=== PATIENT | female | born 1985 | race Hispanic/Latino ===

== ENCOUNTER 2016-10-30 15:59 | Emergency (ER) | payer MEDICAID ==
--- NOTE | 2016-10-30 17:51 | Emergency Department Report ---
Chief Complaint: Abdominal Pain Stated Complaint: LFT ABD PAIN Time Seen by Provider: 10/30/16 17:50 - HPI History of Present Illness: Patient here complaining the left lower abdominal pain 2 days. Patient says she's had a history of ovarian cyst and also had essure control place. She says she has a constant dull pain and then she has stabbing pain also. She denies any urinary burning frequency or urgency. She reports nausea without any vomiting. Patient says she took Aleve without any relief. She denies any fever or chills. Pain is 8 out of 10. - ROS Review of Systems: All systems are negative unless stated in HPI above. - Exam Vital Signs: Vital Signs 10/30/16 16:49 Temperature 98.2 F Pulse Rate 79 Respiratory 20 Rate Blood Pressure 135/88 O2 Sat by Pulse 99 Oximetry Physical Exam: General: This is a 31-year-old female well-nourished well-developed in no acute distress. CV: S1, S2. Regular rate and rhythm. Abdomen: Tender to palpate to left lower quadrant with positive guarding. Normal bowel sounds. MSE screening note: Focused history and physical exam performed. Due to findings the following was ordered:see mdm ED Medical Decision Making - Medical Decision Making Medical decision making: Patient seen by provider in triage area. Appropriate protocol activated and patient to main ED to be seen by physician. ED Disposition for MSE Condition: Stable Instructions: Abdominal Pain (ED)
[2016-10-30 18:03] LABS: Bilirubin,Urine NEG (Negative); Blood,Urine SM (Negative); Ketones,Urine NEG (Negative); Leukocyte Esterase,Urine TR (Negative); Mucus,Urine FEW /HPF; Nitrite,Urine NEG (Negative); Protein,Urine <15 mg/dL mg/dL (Negative); Urobilinogen,Urine < 2.0 mg/dL (<2.0)
[2016-10-30 18:19] LABS: Basophils % (Auto) 0.8 % (0.0-1.8); Hematocrit 43.6 % (30.3-42.9); Hemoglobin 14.4 gm/dl (10.1-14.3); Mean Corpuscular HGB Conc 33 % (30-34); Mean Corpuscular Hemoglobin 28 pg (28-32); Mean Corpuscular Volume 86 fl (79-97); Platelet Count 284 K/mm3 (140-440); Red Blood Count 5.06 M/mm3 (3.65-5.03); Red Cell Distribution Width 13.4 % (13.2-15.2); White Blood Count 8.3 K/mm3 (4.5-11.0)
[2016-10-30 18:50] LABS: Alanine Aminotransferase 22 units/L (7-56); Albumin 4.2 g/dL (3.9-5); Albumin/Globulin Ratio 1.2 %; Alkaline Phosphatase 69 units/L (35-129); Anion Gap 19 mmol/L; BUN/Creatinine Ratio 14.28; Bilirubin,Total 0.3 mg/dL (0.1-1.2); Blood Urea Nitrogen 10 mg/dL (7-17); Calcium 8.9 mg/dL (8.4-10.2); Carbon Dioxide 25 mmol/L (22-30); Chloride 101.2 mmol/L (98-107); Glucose 91 mg/dL (65-100); Lipase 33 units/L (13-60); Potassium 3.9 mmol/L (3.6-5.0); Sodium 141 mmol/L (137-145); Total Protein 7.6 g/dL (6.3-8.2)
[2016-10-31] MEDS ORDERED: DILAUDID IV ONE ×4 (00:42→06:29)
[2016-10-31] MEDS ORDERED: ZOFRAN IV ONE (00:42)
[2016-10-31] MEDS ORDERED: TORADOL IV ONE (00:42)
--- NOTE | 2016-10-31 01:37 | Emergency Department Report ---
ED Abdominal Pain HPI - General Chief Complaint: Abdominal Pain Stated Complaint: LFT ABD PAIN Time Seen by Provider: 10/30/16 17:50 Source: patient Mode of arrival: Ambulatory Limitations: No Limitations - History of Present Illness Initial Comments: 31-year-old female withPast medical history presents to the hospital complaining of low quadrant pain 2 days. Pain is a constant aching with intermittent stabbing sensation. Rated 8/10 intensity. Worse with palpation. No alleviating factors. Positive nausea and secondary to pain without vomiting , fever, dysuria, hematuria, discharge, or vaginal bleeding. Similar pain with a ovarian cyst in the past. Severity scale (0 -10): 9 - Related Data Previous Rx's Medication Instructions Recorded Last Taken Type HYDROcodone/APAP 7.5-325 [[place] 1 each PO Q8HR PRN #20 tablet 10/31/16 Unknown Rx 7.5/325] Ibuprofen [Motrin] 800 mg PO Q8HR PRN #30 tablet 10/31/16 Unknown Rx Promethazine [Phenergan TAB] 25 mg PO Q6HR PRN #20 tab 10/31/16 Unknown Rx Allergies Allergy/AdvReac Type Severity Reaction Status Date / Time aspirin Allergy Unknown Verified 10/31/16 00:12 Sulfa (Sulfonamide Allergy Unknown Verified 10/31/16 00:12 Antibiotics) ED Review of Systems ROS: Stated complaint: LFT ABD PAIN Other details as noted in HPI Comment: All other systems reviewed and negative Other: Constitutional: No fevers chills Eyes: No eye pain visual changes ENT: No ear pain or throat pain Neck: Denies pain Respiratory: Denies cough wheezing shortness of breath Cardiovascular: Denies chest pain, palpitations, syncope GI: As per HPI : Denies dysuria, urinary frequency, or urgency Musculoskeletal: Denies back pain, joint swelling Skin: Denies rash, lesions, erythema Neurologic: Denies headache, numbness, weakness Psychiatric: Denies suicidal ideation, hallucinations Hematological/lymphatic: Denies easy bruising, lymphadenopathy ED Past Medical Hx - Past Medical History Previous Medical History?: Yes Additional medical history: cyst on ovaries - Surgical History Past Surgical History?: No - Social History Smoking Status: Never Smoker Substance Use Type: None - Medications Home Medications: Home Medications Medication Instructions Recorded Confirmed Last Taken Type HYDROcodone/APAP 7.5-325 [[place] 1 each PO Q8HR PRN #20 tablet 10/31/16 Unknown Rx 7.5/325] Ibuprofen [Motrin] 800 mg PO Q8HR PRN #30 tablet 10/31/16 Unknown Rx Promethazine [Phenergan TAB] 25 mg PO Q6HR PRN #20 tab 10/31/16 Unknown Rx ED Physical Exam - General Limitations: No Limitations - Other Other exam information: General: No limitations, patient is alert in no acute distress Head exam: Atraumatic, normocephalic Eyes exam: Normal appearance, pupils equal reactive to light, extraocular movements intact ENT: Moist mucous membrane, normal oropharynx Neck exam: Normal inspection, full range of motion, no meningismus nontender Respiratory exam: Clear to auscultation bilateral, no wheezes, rales, crackles Cardiovascular: Normal rate and rhythm, normal heart sounds Abdomen: Soft, nondistended, lower quadrant tenderness, with normal bowel sounds , no rebound, or guarding : Extremity: Full range of motion normal inspection no deformity Back: Normal Inspection, full range of motion, no tenderness Neurologic: Alert, oriented x3, cranial nerves intact, no motor or sensory deficit Psychiatric: normal affect, normal mood Skin: Warm, dry, intact ED Course Vital Signs 10/30/16 10/30/16 10/31/16 16:49 22:55 00:10 Temperature 98.2 F 98.2 F 98.4 F Pulse Rate 79 69 70 Respiratory 20 18 18 Rate Blood Pressure 135/88 138/92 Blood Pressure 132/77 [Right] O2 Sat by Pulse 99 100 99 Oximetry 10/31/16 10/31/16 10/31/16 00:30 01:20 01:50 Temperature Pulse Rate Respiratory 20 20 20 Rate Blood Pressure Blood Pressure [Right] O2 Sat by Pulse 99 Oximetry 10/31/16 10/31/16 02:37 02:38 Temperature Pulse Rate Respiratory 20 20 Rate Blood Pressure Blood Pressure [Right] O2 Sat by Pulse Oximetry - Reevaluation(s) Reevaluation #1: 10/31/16 04:14 Patient treated with Dilaudid and Toradol for pain ED Medical Decision Making - Lab Data Result diagrams: 10/30/16 18:00 10/30/16 18:00 Lab Results 10/30/16 10/30/16 10/30/16 Range/Units 17:40 18:00 18:00 WBC 8.3 (4.5-11.0) K/mm3 RBC 5.06 H (3.65-5.03) M/mm3 Hgb 14.4 H (10.1-14.3) gm/dl Hct 43.6 H (30.3-42.9) % MCV 86 (79-97) fl MCH 28 (28-32) pg MCHC 33 (30-34) % RDW 13.4 (13.2-15.2) % Plt Count 284 (140-440) K/mm3 Lymph % (Auto) 34.4 (13.4-35.0) % [place] % (Auto) 8.1 H (0.0-7.3) % Eos % (Auto) 1.0 (0.0-4.3) % Baso % (Auto) 0.8 (0.0-1.8) % Lymph # 2.8 (1.2-5.4) K/mm3 [place] # 0.7 (0.0-0.8) K/mm3 Eos # 0.1 (0.0-0.4) K/mm3 Baso # 0.1 (0.0-0.1) K/mm3 Seg Neutrophils % 55.7 (40.0-70.0) % Seg Neutrophils # 4.6 (1.8-7.7) K/mm3 Sodium 141 (137-145) mmol/L Potassium 3.9 (3.6-5.0) mmol/L Chloride 101.2 (98-107) mmol/L Carbon Dioxide 25 (22-30) mmol/L Anion Gap 19 mmol/L BUN 10 (7-17) mg/dL Creatinine 0.7 (0.7-1.2) mg/dL Estimated GFR > 60 ml/min BUN/Creatinine Ratio 14.28 % Glucose 91 (65-100) mg/dL Calcium 8.9 (8.4-10.2) mg/dL Total Bilirubin 0.3 (0.1-1.2) mg/dL AST 18 (5-40) units/L ALT 22 (7-56) units/L Alkaline Phosphatase 69 (35-129) units/L Total Protein 7.6 (6.3-8.2) g/dL Albumin 4.2 (3.9-5) g/dL Albumin/Globulin Ratio 1.2 % Amylase (27-131) units/L Lipase 33 (13-60) units/L HCG, Qual (Negative) Urine Color Yellow (Yellow) Urine Turbidity Clear (Clear) Urine pH 5.0 (5.0-7.0) Ur Specific [place] 1.024 (1.003-1.030) Urine Protein <15 mg/dl (Negative) mg/dL Urine Glucose (UA) Neg (Negative) mg/dL Urine Ketones Neg (Negative) mg/dL Urine Blood Sm (Negative) Urine Nitrite Neg (Negative) Urine Bilirubin Neg (Negative) Urine Urobilinogen < 2.0 (<2.0) mg/dL Ur Leukocyte Esterase Tr (Negative) Urine WBC (Auto) 3.0 (0.0-6.0) /HPF Urine RBC (Auto) 3.0 (0.0-6.0) /HPF U Epithel Cells (Auto) 7.0 (0-13.0) /HPF Urine Mucus Few /HPF 10/30/16 10/30/16 Range/Units 18:00 18:00 WBC (4.5-11.0) K/mm3 RBC (3.65-5.03) M/mm3 Hgb (10.1-14.3) gm/dl Hct (30.3-42.9) % MCV (79-97) fl MCH (28-32) pg MCHC (30-34) % RDW (13.2-15.2) % Plt Count (140-440) K/mm3 Lymph % (Auto) (13.4-35.0) % [place] % (Auto) (0.0-7.3) % Eos % (Auto) (0.0-4.3) % Baso % (Auto) (0.0-1.8) % Lymph # (1.2-5.4) K/mm3 [place] # (0.0-0.8) K/mm3 Eos # (0.0-0.4) K/mm3 Baso # (0.0-0.1) K/mm3 Seg Neutrophils % (40.0-70.0) % Seg Neutrophils # (1.8-7.7) K/mm3 Sodium (137-145) mmol/L Potassium (3.6-5.0) mmol/L Chloride (98-107) mmol/L Carbon Dioxide (22-30) mmol/L Anion Gap mmol/L BUN (7-17) mg/dL Creatinine (0.7-1.2) mg/dL Estimated GFR ml/min BUN/Creatinine Ratio % Glucose (65-100) mg/dL Calcium (8.4-10.2) mg/dL Total Bilirubin (0.1-1.2) mg/dL AST (5-40) units/L ALT (7-56) units/L Alkaline Phosphatase (35-129) units/L Total Protein (6.3-8.2) g/dL Albumin (3.9-5) g/dL Albumin/Globulin Ratio % Amylase 16 L (27-131) units/L Lipase (13-60) units/L HCG, Qual Negative (Negative) Urine Color (Yellow) Urine Turbidity (Clear) Urine pH (5.0-7.0) Ur Specific [place] (1.003-1.030) Urine Protein (Negative) mg/dL Urine Glucose (UA) (Negative) mg/dL Urine Ketones (Negative) mg/dL Urine Blood (Negative) Urine Nitrite (Negative) Urine Bilirubin (Negative) Urine Urobilinogen (<2.0) mg/dL Ur Leukocyte Esterase (Negative) Urine WBC (Auto) (0.0-6.0) /HPF Urine RBC (Auto) (0.0-6.0) /HPF U Epithel Cells (Auto) (0-13.0) /HPF Urine Mucus /HPF wet prep neg - Radiology Data Radiology results: report reviewed Transvaginal/pelvic ultrasound: Uterine fibroid. Normal-appearing Left and right ovary. CT abdomen and pelvis without contrast: Essure fallopian tube implant noted in the right. Left implant not seen. Tiny metallic density adjacent to left ovary may be a surgical clip. Grossly normal ovaries. 2 mm Left lower lobe lung nodule needs follow-up. - Medical Decision Making No acute surgical or infectious cause of pain identified. Follow-up will be encouraged including for incidental findings. Patient provided a copy of imaging results and medication for pain - Differential Diagnosis vaginitis, cervicitis, ovarian cyst, UTI, renal colic, diverticulitis Critical Care Time: No Critical care attestation.: If time is entered above; I have spent that time in minutes in the direct care of this critically ill patient, excluding procedure time. ED Disposition Clinical Impression: LLQ abdominal pain, Lung nodule < 6cm on CT Uterine fibroid Qualifiers: Uterine leiomyoma location: unspecified location Qualified Code(s): D25.9 - Leiomyoma of uterus, unspecified Disposition: DISCHARGED TO HOME OR SELFCARE Is pt being admited?: No Does the pt Need Aspirin: No Condition: Stable Instructions: Abdominal Pain (ED), Uterine Fibroids (ED) Additional Instructions: Take the medication as needed for pain. The Essure implant was not visualized in the left fallopian tube like it was on the right on the CAT scan. Follow-up with [facility] for further evaluation of this as well as a uterine fibroid. Incidental finding of a 2 mm left lower lobe lung nodule. This requires outpatient follow-up and reevaluation to monitor this nodule. Take the copy of your CAT scan and ultrasound provided to your physicians for follow-up. 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 [Provider Group] - 3-5 Days CHERYL RATLIFF MD [Staff Physician] - 3-5 Days Time of Disposition: 04:10
--- NOTE | 2016-10-31 02:13 | Ultrasound Report ---
FINAL REPORT EXAM: US PELVIS DUPLEX DOPPLER COMP HISTORY: llq pain hx of ovarian cyst TECHNIQUE: Real time transabdominal and transvaginal pelvic ultrasound. Initially, transabdominal scanning was performed. Subsequently, transvaginal scanning was performed to better evaluate the uterus and ovaries. Color Doppler and spectral waveform analysis. PRIORS: None FINDINGS: Uterus measures 8.2 x 5.5 x 5.9 cm. 2 cm fundal fibroid on the right. Endometrium is 7.7 mm. Right ovary measures 2.7 x 1.7 x 1.7 cm. Left ovary measures 3.0 x 2.6 x 2.0 cm. Normal color Doppler and spectral waveforms on the left. On the right, adequate color Doppler and spectral waveforms cannot be obtained. This is likely technical given otherwise normal-appearing right ovary. No adnexal mass or free fluid. IMPRESSION: 1. Uterine fibroid. Adequate color Doppler and spectral waveforms on the right ovary cannot be obtained, which is likely technical given otherwise normal-appearing right ovary.
--- NOTE | 2016-10-31 03:58 | Cat Scan Report ---
FINAL REPORT EXAM: CT ABDOMEN PELVIS WO CON HISTORY: llq pain TECHNIQUE: CT abdomen and pelvis without contrast. Multiplanar reformations. PRIORS: None FINDINGS: Solid organ evaluation limited from lack of IV contrast. 2 mm nodule left lower lobe. No free air. Liver shows no significant abnormality. Normal biliary tree. Spleen shows no significant abnormality. Adrenal glands show no significant abnormality. Kidneys show no significant abnormality. Pancreas shows no significant abnormality. Abdominal aorta is non-aneurysmal. Normal-appearing appendix. No right lower quadrant inflammatory changes. No bowel obstruction identified. Essure fallopian tube implants noted on the right. Left sided implant not seen. There is a tiny metallic density adjacent to the left ovary may be a surgical clip. Grossly normal ovaries. No ureteral calculus seen on either side. Small fat-containing umbilical hernia. IMPRESSION: 1. Fallopian tube implant on the right. Left-sided fallopian tube implant is not visualized. 2. No acute inflammatory process. 3. Left lower lobe lung nodule. Followup for lung nodules of this size is as follows, in general: If this patient is low risk (no significant smoking history, no history of malignancy, and normal immune system), nodules less than 4 mm in size need no followup. If the patient is high risk (history of smoking or other known risk factors), followup in 12 months recommended with chest [address] If there is no change at that time, no additional followup is necessary.
[2016-10-31] MEDS ORDERED: DILAUDID ONE (04:55)
[2016-10-31 06:26] VITALS: BP 128/70
== END 2016-10-31 06:00 | disposition home or self-care (01) ==
LOC: ED 15:59
DX: R10.32 Left lower quadrant pain (principal); D25.9 Leiomyoma of uterus, unspecified; R91.1 Solitary pulmonary nodule; Z88.8 Allergy status to other drugs, medicaments and biological substances
CPT/HCPCS: 36415; 74176; 76830; 80053; 81001; 82150; 83690; 84703; 85025; 87210; 87591; 93975; 96374; 96375; 99284; J1170; J1885; J2405

== ENCOUNTER 2018-07-07 22:09 | Emergency (ER) | payer SELFPAY ==
[2018-07-07 23:18] VITALS: BP 127/71
--- NOTE | 2018-07-07 23:47 | XRay Report ---
FINAL REPORT EXAM: XR FOOT 3+V LT TECHNIQUE: Three views of the left foot: AP, oblique and lateral projections. PRIORS: None. FINDINGS: There is no radiographic evidence of acute fracture or dislocation. No significant degenerative changes. Osseous mineralization is normal. Plantar and Achilles heel spurs. Mild malleolar soft tissue swelling. IMPRESSION: Mild ankle soft tissue swelling, no acute osseous abnormality identified within the left foot. HISTORY: Bed fell on foot
--- NOTE | 2018-07-08 00:11 | XRay Report ---
FINAL REPORT EXAM: XR ANKLE 3+V LT HISTORY: Bed fell on foot TECHNIQUE: Three views of the left ankle: AP, oblique and lateral projections. PRIORS: None. FINDINGS: No identified acute fracture. On the lateral projection there is suggested mild soft tissue swelling over the dorsal midfoot. Small plantar and Achilles enthesophytes are present. No significant ankle joint effusion. Suggested mild but mildly older soft tissue swelling. The tibiofibular overlap is appropriate and the ankle mortise is congruent. IMPRESSION: No acute osseous abnormality. Suggested mild dorsal midfoot and ankle soft tissue swelling, correlation with clinical exam requested.
[2018-07-08] MEDS ORDERED: ULTRAM PO ONE (06:24)
--- NOTE | 2018-07-08 06:31 | Emergency Department Report ---
ED Lower Extremity HPI - General Chief Complaint: Extremity Injury, Lower Stated Complaint: LEFT FOOT PAIN Source: patient Mode of arrival: Ambulatory Limitations: No Limitations - History of Present Illness Initial Comments: Patient 33-year-old white female reports [facility] bed disengaged and landed on her left foot 2 days ago with pain swelling aching pain is 6/10 aching mild bruising x-ray negative for fracture plan [place] wrap or associated NSAIDs follow with PCP orthopedist if not improving in 1-2 weeks MD Complaint: foot injury Onset/Timin -: days(s) Injury: Foot: Left Type of Injury: blunt Place: home Severity: moderate Severity scale (0 -10): 5 Improves With: nothing Worsens With: nothing Context: direct blow Associated Symptoms: swelling, tingling, able to partially bear weight - Related Data Previous Rx's Medication Instructions Recorded Last Taken Type HYDROcodone/APAP 7.5-325 [[place] 1 each PO Q8HR PRN #20 tablet 10/31/16 Unknown Rx 7.5/325] Ibuprofen [Motrin] 800 mg PO Q8HR PRN #30 tablet 10/31/16 Unknown Rx Promethazine [Phenergan TAB] 25 mg PO Q6HR PRN #20 tab 10/31/16 Unknown Rx Cyclobenzaprine [Flexeril] 10 mg PO BID PRN #10 tablet 07/08/18 Unknown Rx Menthol/Camphor [[place] Rew 1 applicatio TP TID PRN #1 tube 07/08/18 Unknown Rx Ointment] Naproxen 500 mg PO BID PRN #30 tablet 07/08/18 Unknown Rx Allergies Allergy/AdvReac Type Severity Reaction Status Date / Time aspirin Allergy Unknown Verified 10/31/16 00:12 Sulfa (Sulfonamide Allergy Unknown Verified 10/31/16 00:12 Antibiotics) ED Review of Systems ROS: Stated complaint: LEFT FOOT PAIN Other details as noted in HPI Constitutional: denies: chills, fever Eyes: denies: eye pain, eye discharge, vision change ENT: denies: ear pain, throat pain Respiratory: denies: cough, shortness of breath, wheezing Cardiovascular: denies: chest pain, palpitations Endocrine: no symptoms reported Gastrointestinal: denies: abdominal pain, nausea, diarrhea Genitourinary: denies: urgency, dysuria, discharge Musculoskeletal: joint swelling, myalgia Skin: denies: rash, lesions Neurological: denies: headache, weakness, paresthesias Psychiatric: denies: anxiety, depression Hematological/Lymphatic: denies: easy bleeding, easy bruising ED Past Medical Hx - Past Medical History Additional medical history: cyst on ovaries - Surgical History Past Surgical History?: Yes Additional Surgical History: partial hysterectomy 2015 - Social History Smoking Status: Never Smoker Substance Use Type: Alcohol - Medications Home Medications: Home Medications Medication Instructions Recorded Confirmed Last Taken Type HYDROcodone/APAP 7.5-325 [[place] 1 each PO Q8HR PRN #20 tablet 10/31/16 Unknown Rx 7.5/325] Ibuprofen [Motrin] 800 mg PO Q8HR PRN #30 tablet 10/31/16 Unknown Rx Promethazine [Phenergan TAB] 25 mg PO Q6HR PRN #20 tab 10/31/16 Unknown Rx Cyclobenzaprine [Flexeril] 10 mg PO BID PRN #10 tablet 07/08/18 Unknown Rx Menthol/Camphor [[place] Rew 1 applicatio TP TID PRN #1 tube 07/08/18 Unknown Rx Ointment] Naproxen 500 mg PO BID PRN #30 tablet 07/08/18 Unknown Rx ED Physical Exam - General Limitations: No Limitations General appearance: alert, in no apparent distress - Head Head exam: Present: atraumatic, normocephalic - Eye Eye exam: Present: normal appearance - ENT ENT exam: Present: mucous membranes moist - Neck Neck exam: Present: normal inspection - Respiratory Respiratory exam: Present: normal lung sounds bilaterally. Absent: respiratory distress - Cardiovascular Cardiovascular Exam: Present: regular rate, normal rhythm. Absent: systolic murmur, diastolic murmur, rubs, gallop - GI/Abdominal GI/Abdominal exam: Present: soft, normal bowel sounds - Rectal Rectal exam: Present: deferred - Extremities Exam Extremities exam: Present: tenderness, joint swelling - Expanded Lower Extremity Exam Left Foot/Toe exam: Present: full ROM, tenderness, swelling, ecchymosis. Absent: abrasion, laceration, deformity, crepidus, dislocation, erythema, amputation, puncture wound, foreign body, calcaneal tenderness, tenderness at base of 5th metatarsal, nail avulsion, subungual hematoma Neuro vascular tendon exam: Present: no vascular compromise, significant pain with passive ROM of distal joint. Absent: pulse deficit, abnormal cap refill, motor deficit, sensory deficit, tendon deficit, extremity cold to touch, pallor , abnormal 2-point discrimination, decreased fine/light touch, foot drop, peroneal nerve deficit Gait: Positive: observed and limited by pain - Back Exam Back exam: Present: normal inspection - Neurological Exam Neurological exam: Present: alert, oriented X3, abnormal gait, reflexes normal - Psychiatric Psychiatric exam: Present: normal affect, normal mood - Skin Skin exam: Present: warm, dry, intact, normal color. Absent: rash ED Course Vital Signs 07/07/18 07/07/18 23:06 23:16 Temperature 98.1 F Pulse Rate 67 71 Respiratory 16 16 Rate Blood Pressure 120/54 Blood Pressure 127/71 [Right] O2 Sat by Pulse 99 98 Oximetry ED Lower Extremity MDM - Radiology Data Radiology results: report reviewed, image reviewed no fracture no mild soft tissue swelling - Medical Decision Making this is a left foot sprain with contusion , plan [place] wrap, ortho shoe , nsaids, muscle relaxant cryothreapy follow up with ortho. pt verbalized agreement and understanding of same. Critical care attestation.: If time is entered above; I have spent that time in minutes in the direct care of this critically ill patient, excluding procedure time. ED Disposition Clinical Impression: Sprain of foot, left Qualifiers: Encounter type: initial encounter Qualified Code(s): S93.602A - Unspecified sprain of left foot, initial encounter Disposition: - TO HOME OR SELFCARE Is pt being admited?: No Does the pt Need Aspirin: No Condition: Good Instructions: Foot Sprain (ED), Ankle Exercises (GEN) Prescriptions: Cyclobenzaprine [Flexeril] 10 mg PO BID PRN #10 tablet PRN Reason: Muscle Spasm Menthol/Camphor [[place] Rew Ointment] 1 applicatio TP TID PRN #1 tube PRN Reason: pain Naproxen 500 mg PO BID PRN #30 tablet PRN Reason: pain Referrals: PRIMARY CARE,MD [Primary Care Provider] - 3-5 Days Forms: Work/School Release Form(ED) Time of Disposition: 06:38
== END 2018-07-08 07:38 | disposition home or self-care (01) ==
LOC: ED 22:09
DX: S93.602A Unspecified sprain of left foot, initial encounter (principal); Z90.710 Acquired absence of both cervix and uterus; Z88.6 Allergy status to analgesic agent; Z88.2 Allergy status to sulfonamides; X58.XXXA Exposure to other specified factors, initial encounter; Y93.89 Activity, other specified; Y99.8 Other external cause status; Y92.89 Other specified places as the place of occurrence of the external cause
CPT/HCPCS: 99283

== ENCOUNTER 2018-12-17 16:57 | Emergency (ER) | payer SELFPAY ==
--- NOTE | 2018-12-17 17:16 | Emergency Department Report ---
Blank Doc - Documentation Documentation: This is a 33-year-old female that presents with left foot pain. Denies any in juries or trauma. This initial assessment diagnostic orders/clinical plan/treatment(s) is/are subject to change based on patient's health status, clinical progression and re- assessment by fellow clinical providers in the ED. Further treatment and workup at subsequent clinical providers discretion. Patient/guardians urged not to elope from ED s their condition may be serious if not clinically assessed and managed. Initial orders include: 1-Patient sent to [facility] for further evaluation and treatment 2- xray
[2018-12-17 17:18] VITALS: BP 136/84
--- NOTE | 2018-12-17 19:10 | XRay Report ---
FINAL REPORT EXAM: XR FOOT 3+V LT HISTORY: left foot pain TECHNIQUE: Three views of the left foot. They are labeled "RT" but appear to represent the left foot when compared with the previous exam. PRIORS: 07/07/2018 FINDINGS: The bones are normally aligned and mineralized. The joint spaces are well-preserved. There is no evid ence of acute fracture. The soft tissues are unremarkable. There are small plantar and Achilles calca gentry spurs. IMPRESSION: No evidence of acute fracture or subluxation. Small calcaneal spurs
--- NOTE | 2018-12-17 22:31 | Emergency Department Report ---
ED Lower Extremity HPI - General Chief Complaint: Extremity Problem,Nontraumatic Stated Complaint: LEFT FOOT INJURY Time Seen by Provider: 12/17/18 17:05 Source: patient, family Mode of arrival: Ambulatory Limitations: No Limitations - History of Present Illness Initial Comments: This is a 33-year-old patient here reported that she injured her left foot 2 days ago. She describes the pain is intermittent and shooting in upper leg. Denies any swelling. She says she twisted her foot. Denies any numbness certainly. No medication taken. Pain is worse walking better rest. MD Complaint: foot injury (left foot) Onset/Timin -: days(s) Injury: Toes: Left (injury and pain) Type of Injury: inversion Severity: moderate Severity scale (0 -10): 5 Improves With: rest Worsens With: weight bearing, movement Context: walking Associated Symptoms: swelling, ambulatory. denies: numbness, tingling, unable to bear weight, able to partially bear weight Treatments Prior to Arrival: other (none) - Related Data Previous Rx's Medication Instructions Recorded Last Taken Type HYDROcodone/APAP 7.5-325 [[place] 1 each PO Q8HR PRN #20 tablet 10/31/16 Unknown Rx 7.5/325] Ibuprofen [Motrin] 800 mg PO Q8HR PRN #30 tablet 10/31/16 Unknown Rx Promethazine [Phenergan TAB] 25 mg PO Q6HR PRN #20 tab 10/31/16 Unknown Rx Cyclobenzaprine [Flexeril] 10 mg PO BID PRN #10 tablet 07/08/18 Unknown Rx Menthol/Camphor [[place] 1 applicatio TP TID PRN #1 tube 07/08/18 Unknown Rx Ointment] Naproxen 500 mg PO BID PRN #30 tablet 07/08/18 Unknown Rx traMADol [Ultram 50 MG tab] 50 mg PO Q6HR PRN #12 tablet 12/17/18 Unknown Rx Allergies Allergy/AdvReac Type Severity Reaction Status Date / Time aspirin Allergy Unknown Verified 10/31/16 00:12 Sulfa (Sulfonamide Allergy Unknown Verified 10/31/16 00:12 Antibiotics) ED Review of Systems ROS: Stated complaint: LEFT FOOT INJURY Other details as noted in HPI Constitutional: denies: chills, fever Respiratory: denies: cough, shortness of breath, wheezing Cardiovascular: denies: chest pain, palpitations, edema, syncope Gastrointestinal: denies: nausea, vomiting Genitourinary: denies: hematuria Musculoskeletal: joint swelling, arthralgia. denies: back pain, myalgia Skin: denies: rash Neurological: denies: headache, numbness, paresthesias, confusion, abnormal gait , vertigo ED Past Medical Hx - Past Medical History Previous Medical History?: No Additional medical history: cyst on ovaries - Surgical History Past Surgical History?: Yes Additional Surgical History: partial hysterectomy 2015 - Family History Family history: hypertension - Social History Smoking Status: Never Smoker Substance Use Type: None - Medications Home Medications: Home Medications Medication Instructions Recorded Confirmed Last Taken Type HYDROcodone/APAP 7.5-325 [[place] 1 each PO Q8HR PRN #20 tablet 10/31/16 Unknown Rx 7.5/325] Ibuprofen [Motrin] 800 mg PO Q8HR PRN #30 tablet 10/31/16 Unknown Rx Promethazine [Phenergan TAB] 25 mg PO Q6HR PRN #20 tab 10/31/16 Unknown Rx Cyclobenzaprine [Flexeril] 10 mg PO BID PRN #10 tablet 07/08/18 Unknown Rx Menthol/Camphor [[place] 1 applicatio TP TID PRN #1 tube 07/08/18 Unknown Rx Ointment] Naproxen 500 mg PO BID PRN #30 tablet 07/08/18 Unknown Rx traMADol [Ultram 50 MG tab] 50 mg PO Q6HR PRN #12 tablet 12/17/18 Unknown Rx ED Physical Exam - General Limitations: No Limitations General appearance: alert, in no apparent distress - Head Head exam: Present: atraumatic, normocephalic - Eye Eye exam: Present: normal appearance, PERRL, EOMI - ENT ENT exam: Present: normal exam, normal orophraynx - Neck Neck exam: Present: normal inspection, full ROM - Respiratory Respiratory exam: Present: normal lung sounds bilaterally. Absent: respiratory distress, chest wall tenderness - Cardiovascular Cardiovascular Exam: Present: regular rate, normal rhythm, normal heart sounds - Extremities Exam Extremities exam: Present: normal inspection, full ROM (pain in with dorsiflexion of left foot), tenderness (tender to palpate to left foot laterally), normal capillary refill, joint swelling (minimal swelling noted to left foot laterally), other (No cce. + 2 pulses in all extremities, no neurovascular compromise except for minimal swelling to left foot with tenderness to palpate.). Absent: pedal edema, calf tenderness - Neurological Exam Neurological exam: Present: alert, oriented X3, normal gait - Psychiatric Psychiatric exam: Present: normal affect, normal mood - Skin Skin exam: Present: warm, dry, intact, normal color. Absent: rash ED Course Vital Signs 12/17/18 17:16 Temperature 97.2 F L Pulse Rate 70 Respiratory 18 Rate Blood Pressure 136/84 O2 Sat by Pulse 99 Oximetry - Reevaluation(s) Reevaluation #1: 12/17/18 23:13 Patient given [place] 5/325 2 tablets by mouth in emergency room. Please see procedure note for details and splinted - Orthopedic Splinting/Casting Injury #1 Side: left Lower Extremity Injury Location: foot Lower Extremity Immobilizer: [place] wrap Additional Comments: Patient says she has her own crutches at home so she use that if she needs to. I recommended she has no weightbearing to left lower extremity for 3 days. She has good color, sensation and movement and temperatures to toes of left foot. +2 and bounding pedal pulses ED Lower Extremity MDM - Radiology Data Radiology results: report reviewed X-ray of left foot 3 views dictated by radiologist and report reviewed by myself. Please see below for details. Findings [facility] [address] [place] [address] XRay Report Signed Patient: ROSALINDA VARELA MR#: [id number] : 1985 Acct:[id number] Age/Sex: 33 / F ADM Date: 12/17/18 Loc: ED Attending Dr: Ordering Physician: TATYANA CAMARENA NP Date of Service: 12/17/18 Procedure(s): XR foot 3+V LT Accession Number(s): [id number] cc: TATYANA CAMARENA NP Fluoro Time In Minutes: FINAL REPORT EXAM: XR FOOT 3+V LT HISTORY: left foot pain TECHNIQUE: Three views of the left foot. They are labeled "RT" but appear to represent the left foot when compared with the previous exam. PRIORS: 07/07/2018 FINDINGS: The bones are normally aligned and mineralized. The joint spaces are well-prese rved. There is no evidence of acute fracture. The soft tissues are unremarkable. There are small plantar and Achilles calcaneal spurs. IMPRESSION: No evidence of acute fracture or subluxation. Small calcaneal spurs Transcribed By: JOHN Dictated By: ANGEL ROBERTSON MD Electronically Authenticated By: ANGEL ROBERTSON MD Signed Date/Time: 12/17/181909 DD/ 07 TD/TT: 12/17/181907 - Medical Decision Making This is a 33-year-old female here for left foot pain that she thinks she twisted 2 days ago. X-ray report shows normal finding. She has calcaneal spur. Patient have minimal swelling to left lateral foot. I discussed with her that she needs to avoid doing nonweightbearing to left lower extremity for the next 3 days, Rice therapy explained to her. I also explained to her that she needs to follow-up with multimedia specialist in 2-3 days if she still continues to have pain. See procedure note for [place] wrap and she refuses crutches. She was given pain medication emergency room and her pain is better. Discharged home with prescription for Ultram. - Differential Diagnosis fx, dislocation sprain, strain, MSK pain Critical care attestation.: If time is entered above; I have spent that time in minutes in the direct care of this critically ill patient, excluding procedure time. ED Disposition Clinical Impression: Foot sprain Qualifiers: Encounter type: initial encounter Laterality: left Qualified Code(s): S93.602A - Unspecified sprain of left foot, initial encounter Calcaneal spur of foot Qualifiers: Laterality: left Qualified Code(s): M77.32 - Calcaneal spur, left foot Disposition: DC- TO HOME OR SELFCARE Is pt being admited?: No Does the pt Need Aspirin: No Condition: Stable Instructions: Foot Sprain (ED), RICE Therapy (ED), Plantar Fasciitis (ED) Additional Instructions: See procedure note For rice therapy Take medication as prescribed. Please do not think Ultram while driving as this medication causes drowsiness Please rest left lower extremity for at least 72 hours Follow-up with orthopedic or multimedia specialist regarding calcaneal spur Referrals: BENJAMIN FATIMA MD [Primary Care Provider] - 2-3 Days LAITH MARKS DPM [Staff Physician] - 2-3 Days Forms: Work/School Release Form(ED), Accompanied Note
[2018-12-17] MEDS ORDERED: NORCO 5/325 PO ONE (22:35)
== END 2018-12-17 23:25 | disposition home or self-care (01) ==
LOC: ED 16:57
DX: S93.602A Unspecified sprain of left foot, initial encounter (principal); M77.32 Calcaneal spur, left foot; Z88.2 Allergy status to sulfonamides; X50.9XXA Other and unspecified overexertion or strenuous movements or postures, initial encounter; Y93.89 Activity, other specified; Y92.89 Other specified places as the place of occurrence of the external cause; Y99.8 Other external cause status

== ENCOUNTER 2019-08-26 12:06 | Emergency (ER) | payer SELFPAY ==
[2019-08-26] MEDS ORDERED: IPRATROPIUM 0.02% NEBU 2.5 ML IH ONE ×2 (14:24→14:28)
[2019-08-26] MEDS ORDERED: ALBUTEROL 2.5 MG/3 ML NEBU IH ONE ×5 (14:24→20:50)
[2019-08-26] MEDS ORDERED: predniSONE 20 MG TAB PO ONE (14:24)
--- NOTE | 2019-08-26 14:52 | XRay Report ---
CHEST 2 VIEWS INDICATION / CLINICAL INFORMATION: COUGH/SOB. COMPARISON: None available. FINDINGS: SUPPORT DEVICES: None. HEART / MEDIASTINUM: The heart size and pulmonary vasculature are normal. LUNGS / PLEURA: No significant pulmonary or pleural abnormality. No pneumothorax. ADDITIONAL FINDINGS: No significant additional findings. IMPRESSION: No acute findings. Signer Name: Jamie Markham MD Signed: 08/26/2019 2:48 PM Workstation Name: [id number]
[2019-08-26 17:28] LABS: Basophils # (Auto) 0.1 K/mm3 (0.0-0.1); Basophils % (Auto) 0.3 % (0.0-1.8); Eosinophils % (Auto) 0.1 % (0.0-4.3); Hematocrit 40.8 % (30.3-42.9); Lymphocytes # (Auto) 2.6 K/mm3 (1.2-5.4); Lymphocytes % (Auto) 15.6 % (13.4-35.0); Mean Corpuscular HGB Conc 32 % (30-34); Mean Corpuscular Volume 84 fl (79-97); Monocytes % (Auto) 5.7 % (0.0-7.3); Platelet Count 309 K/mm3 (140-440); Red Blood Count 4.84 M/mm3 (3.65-5.03); Red Cell Distribution Width 15.2 % (13.2-15.2)
[2019-08-26 17:39] LABS: BUN/Creatinine Ratio 14; Blood Urea Nitrogen 10 mg/dL (7-17); Calcium 9.2 mg/dL (8.4-10.2); Hemolysis Index 4
[2019-08-26] MEDS ORDERED: POTASSIUM CHLORIDE ER 20 MEQ TAB PO ONE (18:02)
--- NOTE | 2019-08-26 18:58 | Emergency Department Report ---
<HILDA HEATH - Last Filed: 08/26/19 18:56> ED General Adult HPI - General Chief complaint: Dyspnea/Respdistress Stated complaint: CHEST PAIN/COUGH/FEVER/WHEEZING Time Seen by Provider: 08/26/19 14:24 Source: patient Mode of arrival: Ambulatory Limitations: No Limitations - History of Present Illness Initial comments: Patient is a 34-year-old female who is presenting with 3 days of cough and wheeze. Patient states she has a remote history of asthma as a child but is not wheezing she was approximately 8 years old. Patient's had a dry cough for the past 3 days has developed wheezing today. Patient states she has some shortness of breath. Patient denies fevers chills nausea vomiting. She states she has a pressure-like sensation in the right ear. Patient states when states a deep breath there is some increased pain. - Related Data Previous Rx's Medication Instructions Recorded Last Taken Type HYDROcodone/APAP 7.5-325 [[place] 1 each PO Q8HR PRN #20 tablet 10/31/16 Unknown Rx 7.5/325] Ibuprofen [Motrin] 800 mg PO Q8HR PRN #30 tablet 10/31/16 Unknown Rx Promethazine [Phenergan TAB] 25 mg PO Q6HR PRN #20 tab 10/31/16 Unknown Rx Cyclobenzaprine [Flexeril] 10 mg PO BID PRN #10 tablet 07/08/18 Unknown Rx Menthol/Camphor [[place] 1 applicatio TP TID PRN #1 tube 07/08/18 Unknown Rx Ointment] Naproxen 500 mg PO BID PRN #30 tablet 07/08/18 Unknown Rx traMADol [Ultram 50 MG tab] 50 mg PO Q6HR PRN #12 tablet 12/17/18 Unknown Rx ALBUTEROL Inhaler (OR & NICU) 2 puff IH QID PRN #1 inhalation 08/27/19 Unknown Rx [ProAir HFA Inhaler] Azithromycin [Zithromax Z-BRAD] 1 dose PO DAILY 5 Days tab 08/27/19 Unknown Rx Benzonatate [Tessalon Perles] 100 mg PO Q8HR #30 capsule 08/27/19 Unknown Rx Inhaler, Assist Devices [Space 1 each MC PRN PRN #1 spacer 08/27/19 Unknown Rx Chamber Plus] Potassium Chloride [K-Dur] 20 meq PO BID #6 tab 08/27/19 Unknown Rx Prednisone [predniSONE 10 mg 10 mg PO .TAPER #1 tab.ds.pk 08/27/19 Unknown Rx (6-Day Pack, 21 Tabs)] Allergies Allergy/AdvReac Type Severity Reaction Status Date / Time aspirin Allergy Unknown Verified 10/31/16 00:12 Sulfa (Sulfonamide Allergy Unknown Verified 10/31/16 00:12 Antibiotics) ED Review of Systems Comment: All other systems reviewed and negative ED Past Medical Hx - Past Medical History Previous Medical History?: Yes Additional medical history: cyst on ovaries - Surgical History Past Surgical History?: Yes Additional Surgical History: partial hysterectomy 2015 - Social History Smoking Status: Never Smoker Substance Use Type: None - Medications Home Medications: Home Medications Medication Instructions Recorded Confirmed Last Taken Type HYDROcodone/APAP 7.5-325 [[place] 1 each PO Q8HR PRN #20 tablet 10/31/16 Unknown Rx 7.5/325] Ibuprofen [Motrin] 800 mg PO Q8HR PRN #30 tablet 10/31/16 Unknown Rx Promethazine [Phenergan TAB] 25 mg PO Q6HR PRN #20 tab 10/31/16 Unknown Rx Cyclobenzaprine [Flexeril] 10 mg PO BID PRN #10 tablet 07/08/18 Unknown Rx Menthol/Camphor [[place] 1 applicatio TP TID PRN #1 tube 07/08/18 Unknown Rx Ointment] Naproxen 500 mg PO BID PRN #30 tablet 07/08/18 Unknown Rx traMADol [Ultram 50 MG tab] 50 mg PO Q6HR PRN #12 tablet 12/17/18 Unknown Rx ALBUTEROL Inhaler (OR & NICU) 2 puff IH QID PRN #1 inhalation 08/27/19 Unknown Rx [ProAir HFA Inhaler] Azithromycin [Zithromax Z-BRAD] 1 dose PO DAILY 5 Days tab 08/27/19 Unknown Rx Benzonatate [Tessalon Perles] 100 mg PO Q8HR #30 capsule 08/27/19 Unknown Rx Inhaler, Assist Devices [Space 1 each MC PRN PRN #1 spacer 08/27/19 Unknown Rx Chamber Plus] Potassium Chloride [K-Dur] 20 meq PO BID #6 tab 08/27/19 Unknown Rx Prednisone [predniSONE 10 mg 10 mg PO .TAPER #1 tab.ds.pk 08/27/19 Unknown Rx (6-Day Pack, 21 Tabs)] ED Physical Exam - General Limitations: No Limitations General appearance: alert, in no apparent distress - Head Head exam: Present: atraumatic, normocephalic - Eye Eye exam: Present: normal appearance, PERRL, EOMI - ENT ENT exam: Present: mucous membranes moist - Neck Neck exam: Present: normal inspection - Respiratory Respiratory exam: Present: respiratory distress, wheezes. Absent: normal lung sounds bilaterally, rales, rhonchi - Cardiovascular Cardiovascular Exam: Present: regular rate, normal rhythm. Absent: systolic murmur, diastolic murmur, rubs, gallop - GI/Abdominal GI/Abdominal exam: Present: soft, normal bowel sounds. Absent: distended, tenderness, guarding, rebound - Extremities Exam Extremities exam: Present: normal inspection - Back Exam Back exam: Present: normal inspection - Neurological Exam Neurological exam: Present: alert, oriented X3 - Psychiatric Psychiatric exam: Present: normal affect, normal mood - Skin Skin exam: Present: warm, dry, intact, normal color. Absent: rash ED Course - Reevaluation(s) Reevaluation #1: 08/26/19 18:58 Patient received hour-long neb treatment with 10 of albuterol and one of Atrovent. After receiving this treatment the patient has continued to wheeze and feel short of breath. Laboratory studies ordered and the patient did have a slight elevation of her d-dimer. CT has been ordered as well. Patient be given additional neb treatment. ED Medical Decision Making - Lab Data Result diagrams: 08/26/19 16:40 08/26/19 16:40 Lab Results 08/26/19 08/26/19 08/26/19 Range/Units 16:40 16:40 16:40 WBC 16.9 H (4.5-11.0) K/mm3 RBC 4.84 (3.65-5.03) M/mm3 Hgb 13.0 (10.1-14.3) gm/dl Hct 40.8 (30.3-42.9) % MCV 84 (79-97) fl MCH 27 L (28-32) pg MCHC 32 (30-34) % RDW 15.2 (13.2-15.2) % Plt Count 309 (140-440) K/mm3 Lymph % (Auto) 15.6 (13.4-35.0) % [place] % (Auto) 5.7 (0.0-7.3) % Eos % (Auto) 0.1 (0.0-4.3) % Baso % (Auto) 0.3 (0.0-1.8) % Lymph # 2.6 (1.2-5.4) K/mm3 [place] # 1.0 H (0.0-0.8) K/mm3 Eos # 0.0 (0.0-0.4) K/mm3 Baso # 0.1 (0.0-0.1) K/mm3 Seg Neutrophils % 78.3 H (40.0-70.0) % Seg Neutrophils # 13.2 H (1.8-7.7) K/mm3 D-Dimer 302.09 H (0-234) ng/mlDDU Sodium 144 (137-145) mmol/L Potassium 2.7 L* (3.6-5.0) mmol/L Chloride 103.5 (98-107) mmol/L Carbon Dioxide 22 (22-30) mmol/L Anion Gap 21 mmol/L BUN 10 (7-17) mg/dL Creatinine 0.7 (0.7-1.2) mg/dL Estimated GFR > 60 ml/min BUN/Creatinine Ratio 14 % Glucose 137 H (65-100) mg/dL Calcium 9.2 (8.4-10.2) mg/dL ED Disposition Clinical Impression: Acute bronchitis, Hypokalemia Disposition: TO HOME OR SELFCARE Condition: Stable Instructions: Hypokalemia (ED), Acute Bronchitis (ED) Additional Instructions: Take the medication as prescribed. Follow-up with your doctor or doctor/clinic provided. Return if symptoms worsen as indicated by your discharge instructions. Prescriptions: Potassium Chloride [K-Dur] 20 meq PO BID #6 tab Prednisone [predniSONE 10 mg (6-Day Pack, 21 Tabs)] 10 mg PO .TAPER #1 tab.ds.pk ALBUTEROL Inhaler (OR & NICU) [ProAir HFA Inhaler] 2 puff IH QID PRN #1 inhalation PRN Reason: Shortness Of Breath Inhaler, Assist Devices [Space Chamber Plus] 1 each MC PRN PRN #1 spacer PRN Reason: Wheezing Benzonatate [Tessalon Perles] 100 mg PO Q8HR #30 capsule Azithromycin [Zithromax Z-BRAD] 1 dose PO DAILY 5 Days tab Referrals: PRIMARY CARE, [Primary Care Provider] - 3-5 Days ISMAEL FARIAS MD [Staff Physician] - 3-5 Days [facility] [Provider Group] - 3-5 Days Forms: Work/School Release Form(ED) <KT HAMLIN - Last Filed: 08/27/19 00:32> ED Review of Systems ROS: Stated complaint: CHEST PAIN/COUGH/FEVER/WHEEZING Other details as noted in HPI ED Course Vital Signs 08/26/19 08/26/19 08/26/19 13:07 14:30 16:59 Temperature 97.8 F Pulse Rate 82 Pulse Rate [ 85 Anterior Bilateral Throughout] Respiratory 18 18 Rate Respiratory 20 Rate [Anterior Bilateral Throughout] Blood Pressure 133/80 Blood Pressure [Right] O2 Sat by Pulse 96 96 Oximetry 08/26/19 08/26/19 08/27/19 17:03 22:25 00:22 Temperature 97.9 F Pulse Rate 98 H 94 H Pulse Rate [ 99 H Anterior Bilateral Throughout] Respiratory 20 17 Rate Respiratory 20 Rate [Anterior Bilateral Throughout] Blood Pressure Blood Pressure 146/75 116/65 [Right] O2 Sat by Pulse 98 99 Oximetry - Reevaluation(s) Reevaluation #2: 08/26/19 20:51 I evaluated patient at this time and she has significant wheezing. No signs of respiratory distress. Patient already received 25 mg of albuterol, 1 mg of Atrovent, by mouth prednisone 60 mg, and oral potassium for hypokalemia. I ordered magnesium over an hour ago. I requested that RN place 20g in AC for CTA and administer magnesium. I ordered additional nebulized treatments of albuterol 10 mg and contacted respiratory therapist. I informed patient that she has a CTA ordered to rule out a PE. I Also for patient if her respiratory status does not improved with ED treatment she will be admitted Reevaluation #3: 08/27/19 00:09 Patient feeling better with ED treatment. She still has some mild wheezing but states she has been ambulating throughout the department without difficulty. She prefers to go home. Repeat vital signs requested. Patient will be prepped for discharge for acute bronchitis ED Medical Decision Making - Lab Data Result diagrams: 08/26/19 16:40 08/26/19 16:40 - Radiology Data Radiology results: report reviewed CT angio chest INDICATION: resp distress with elevated ddimer. TECHNIQUE: All CT scans at this location are performed using CT dose reduction for ALARA by means of automated exposure control. COMPARISON: None available. FINDINGS: Mediastinum, ivet and axillae are negative. Uppermost abdomen is unremarkable. No pleural fluid. Lingular atelectasis but no acute pulmonary disease. No evidence of pulmonary embolus. IMPRESSION: 1. Negative for pulmonary embolus or other acute disease. Critical Care Time: No Critical care attestation.: If time is entered above; I have spent that time in minutes in the direct care of this critically ill patient, excluding procedure time. ED Disposition Is pt being admited?: No Does the pt Need Aspirin: No Time of Disposition: 00:32
[2019-08-26] MEDS ORDERED: MAGNESIUM SULFATE 2 GM/50 ML BAG IV ONE (19:13)
--- NOTE | 2019-08-26 23:40 | Cat Scan Report ---
CT angio chest INDICATION: resp distress with elevated ddimer. TECHNIQUE: All CT scans at this location are performed using CT dose reduction for ALARA by means of automated e xposure control. COMPARISON: None available. FINDINGS: Mediastinum, ivet and axillae are negative. Uppermost abdomen is unremarkable. No pleural fluid. Lingular atelectasis but no acute pulmonary disease. No evidence of pulmonary embolus. IMPRESSION: 1. Negative for pulmonary embolus or other acute disease. Signer Name: Gunnar Goyal MD Signed: 08/26/2019 11:36 PM Workstation Name: [id number]
[2019-08-27 00:28] VITALS: BP 116/65
== END 2019-08-27 00:49 | disposition home or self-care (01) ==
LOC: ED 12:06
DX: J20.9 Acute bronchitis, unspecified (principal); E87.6 Hypokalemia; Z88.6 Allergy status to analgesic agent; Z88.2 Allergy status to sulfonamides; Z79.1 Long term (current) use of non-steroidal anti-inflammatories (NSAID); Z79.899 Other long term (current) drug therapy; Z90.711 Acquired absence of uterus with remaining cervical stump
CPT/HCPCS: 36415; 71046; 71275; 80048; 83735; 85025; 85379; 94644; 94645; 96365; 99285; J3475; J7512; Q9967

== ENCOUNTER 2020-07-22 18:20 | Emergency (ER) | payer SELFPAY ==
[2020-07-22] MEDS ORDERED: ONDANSETRON 4 MG ODT TAB PO ONE (21:03)
[2020-07-22 21:15] LABS: Basophils % (Auto) 0.4 % (0.0-1.8); Eosinophils # (Auto) 0.1 K/mm3 (0.0-0.4); Eosinophils % (Auto) 1.2 % (0.0-4.3); Hematocrit 38.7 % (30.3-42.9); Lymphocytes # (Auto) 2.6 K/mm3 (1.2-5.4); Lymphocytes % (Auto) 27.6 % (13.4-35.0); Mean Corpuscular HGB Conc 34 % (30-34); Mean Corpuscular Volume 84 fl (79-97); Monocytes # (Auto) 0.6 K/mm3 (0.0-0.8); Monocytes % (Auto) 6.1 % (0.0-7.3); Platelet Count 276 K/mm3 (140-440); Red Blood Count 4.59 M/mm3 (3.65-5.03); Red Cell Distribution Width 15.5 % (13.2-15.2)
[2020-07-22 21:23] LABS: Blood Urea Nitrogen 12 mg/dL (7-17); Calcium 9.1 mg/dL (8.4-10.2); Hemolysis Index 4
[2020-07-22 21:26] LABS: Alanine Aminotransferase 25 units/L (7-56); Albumin 4.3 g/dL (3.9-5)
[2020-07-22 21:28] LABS: BUN/Creatinine Ratio 17; Bilirubin,Direct < 0.2 mg/dL (0-0.2)
[2020-07-22 22:03] LABS: INR TNR (0.87-1.13); Partial Thromboplastin Time TNR Sec. (24.2-36.6)
[2020-07-23 00:05] LABS: INR 0.96 (0.87-1.13)
--- NOTE | 2020-07-23 00:34 | Emergency Department Report ---
ED GI Bleed HPI - General Chief complaint: GI Bleed Stated complaint: BLEEDING FROM RECTUM Time Seen by Provider: 07/23/20 00:15 Source: patient Mode of arrival: Ambulatory Limitations: No Limitations - History of Present Illness Initial comments: 35-year-old female with a past medical history of obesity and bilateral salpingectomy presents to the hospital complains of bright red blood per rectum for the past 2 days. Patient states she is noted bright red blood with bowel movements and also noticing passing of blood per rectum when she sits down to urinate. Patient has pain with wiping the anal area. She denies previous history of hemorrhoids or fissures. Patient had 2 bowel movements today. She denies constipation or straining she complains of nausea without abdominal pain. Patient started her menstrual cycle today and started to have left lower back pain today that is sharp in nature. - Related Data Previous Rx's Medication Instructions Recorded Last Taken Type HYDROcodone/APAP 7.5-325 [[place] 1 each PO Q8HR PRN #20 tablet 10/31/16 Unknown Rx 7.5/325] Ibuprofen [Motrin] 800 mg PO Q8HR PRN #30 tablet 10/31/16 Unknown Rx Promethazine [Phenergan TAB] 25 mg PO Q6HR PRN #20 tab 10/31/16 Unknown Rx Cyclobenzaprine [Flexeril] 10 mg PO BID PRN #10 tablet 07/08/18 Unknown Rx Menthol/Camphor [[place] 1 applicatio TP TID PRN #1 tube 07/08/18 Unknown Rx Ointment] Naproxen 500 mg PO BID PRN #30 tablet 07/08/18 Unknown Rx traMADoL [Ultram 50 MG tab] 50 mg PO Q6HR PRN #12 tablet 12/17/18 Unknown Rx Albuterol Mdi (or & Nicu Only) 2 puff IH QID PRN #1 inhalation 08/27/19 Unknown Rx [ProAir HFA Inhaler] Azithromycin [Zithromax Z-BRAD] 1 dose PO DAILY 5 Days tab 08/27/19 Unknown Rx Benzonatate [Tessalon Perles] 100 mg PO Q8HR #30 capsule 08/27/19 Unknown Rx Inhaler, Assist Devices [Space 1 each MC PRN PRN #1 spacer 08/27/19 Unknown Rx Chamber Plus] Potassium Chloride [K-Dur] 20 meq PO BID #6 tab 08/27/19 Unknown Rx Prednisone [predniSONE 10 mg 10 mg PO .TAPER #1 tab.ds.pk 08/27/19 Unknown Rx (6-Day Pack, 21 Tabs)] Docusate Sodium [Colace] 100 mg PO BID PRN #20 capsule 07/23/20 Unknown Rx Phenylephrine HCl/[place] Butter 1 each RC 4XD PRN #20 supp.rect 07/23/20 Unknown Rx [Preparation H Suppository] Allergies Allergy/AdvReac Type Severity Reaction Status Date / Time aspirin Allergy Unknown Verified 10/31/16 00:12 Sulfa (Sulfonamide Allergy Unknown Verified 10/31/16 00:12 Antibiotics) ED Review of Systems ROS: Stated complaint: BLEEDING FROM RECTUM Other details as noted in HPI Comment: All other systems reviewed and negative Other: General: No acute distress Head: Atraumatic Eyes: normal appearance ENT: Moist mucous membranes Neck: Normal appearance, no midline tenderness Chest: Clear to auscultation bilaterally CV: Regular rate and rhythm Abdomen: Soft, normal bowel sounds, nontender, nondistended, no rebound or guarding Back: Normal inspection Extremity: Normal inspection, full range of motion Neuro: Alert O x 3, no facial asymmetry, speech clear, no gross motor sensory deficit Psych: Appropriate behavior Skin: No rash ED Past Medical Hx - Past Medical History Previous Medical History?: Yes Additional medical history: cyst on ovaries - Surgical History Past Surgical History?: Yes Additional Surgical History: Bilateral salpingectomy after tube injury status post Ensure placement 2015 - Social History Smoking Status: Never Smoker Substance Use Type: None - Medications Home Medications: Home Medications Medication Instructions Recorded Confirmed Last Taken Type HYDROcodone/APAP 7.5-325 [[place] 1 each PO Q8HR PRN #20 tablet 10/31/16 Unknown Rx 7.5/325] Ibuprofen [Motrin] 800 mg PO Q8HR PRN #30 tablet 10/31/16 Unknown Rx Promethazine [Phenergan TAB] 25 mg PO Q6HR PRN #20 tab 10/31/16 Unknown Rx Cyclobenzaprine [Flexeril] 10 mg PO BID PRN #10 tablet 07/08/18 Unknown Rx Menthol/Camphor [[place] 1 applicatio TP TID PRN #1 tube 07/08/18 Unknown Rx Ointment] Naproxen 500 mg PO BID PRN #30 tablet 07/08/18 Unknown Rx traMADoL [Ultram 50 MG tab] 50 mg PO Q6HR PRN #12 tablet 12/17/18 Unknown Rx Albuterol Mdi (or & Nicu Only) 2 puff IH QID PRN #1 inhalation 08/27/19 Unknown Rx [ProAir HFA Inhaler] Azithromycin [Zithromax Z-BRAD] 1 dose PO DAILY 5 Days tab 08/27/19 Unknown Rx Benzonatate [Tessalon Perles] 100 mg PO Q8HR #30 capsule 08/27/19 Unknown Rx Inhaler, Assist Devices [Space 1 each MC PRN PRN #1 spacer 08/27/19 Unknown Rx Chamber Plus] Potassium Chloride [K-Dur] 20 meq PO BID #6 tab 08/27/19 Unknown Rx Prednisone [predniSONE 10 mg 10 mg PO .TAPER #1 tab.ds.pk 08/27/19 Unknown Rx (6-Day Pack, 21 Tabs)] Docusate Sodium [Colace] 100 mg PO BID PRN #20 capsule 07/23/20 Unknown Rx Phenylephrine HCl/[place] Butter 1 each RC 4XD PRN #20 supp.rect 07/23/20 Unknown Rx [Preparation H Suppository] ED Physical Exam - General Limitations: No Limitations - Other Other exam information: General: No acute distress Head: Atraumatic Eyes: normal appearance ENT: Moist mucous membranes Neck: Normal appearance, no midline tenderness Chest: Clear to auscultation bilaterally CV: Regular rate and rhythm Abdomen: Soft, normal bowel sounds, nontender, nondistended, no rebound or guarding Rectal: No external hemorrhoids, fissures, patient attempted to clean the area well prior to exam since she is currently on her menstrual cycle however, blood was noted on the external anal area even prior to digital exam. Rectal exam reveals brown-pink stool. Guaiac positive Back: Normal inspection Extremity: Normal inspection, full range of motion Neuro: Alert O x 3, no facial asymmetry, speech clear, no gross motor sensory deficit Psych: Appropriate behavior Skin: No rash ED Course Vital Signs 07/22/20 07/22/20 07/23/20 18:50 21:00 00:04 Temperature 99.2 F Pulse Rate 72 73 Respiratory 18 18 Rate Blood Pressure 150/101 Blood Pressure 175/101 [Right] O2 Sat by Pulse 99 99 100 Oximetry 07/23/20 07/23/20 07/23/20 00:05 00:15 00:30 Temperature Pulse Rate Respiratory Rate Blood Pressure 139/72 138/75 Blood Pressure [Right] O2 Sat by Pulse 99 99 100 Oximetry 07/23/20 02:57 Temperature Pulse Rate Respiratory Rate Blood Pressure 129/70 Blood Pressure [Right] O2 Sat by Pulse 100 Oximetry ED Medical Decision Making - Lab Data Result diagrams: 07/22/20 20:44 07/22/20 20:44 Lab Results 07/22/20 07/22/20 07/22/20 Range/Units 20:44 20:44 20:44 WBC 9.3 (4.5-11.0) K/mm3 RBC 4.59 (3.65-5.03) M/mm3 Hgb 13.0 (10.1-14.3) gm/dl Hct 38.7 (30.3-42.9) % MCV 84 (79-97) fl MCH 28 (28-32) pg MCHC 34 (30-34) % RDW 15.5 H (13.2-15.2) % Plt Count 276 (140-440) K/mm3 Lymph % (Auto) 27.6 (13.4-35.0) % [place] % (Auto) 6.1 (0.0-7.3) % Eos % (Auto) 1.2 (0.0-4.3) % Baso % (Auto) 0.4 (0.0-1.8) % Lymph # (Auto) 2.6 (1.2-5.4) K/mm3 [place] # (Auto) 0.6 (0.0-0.8) K/mm3 Eos # (Auto) 0.1 (0.0-0.4) K/mm3 Baso # (Auto) 0.0 (0.0-0.1) K/mm3 Seg Neutrophils % 64.7 (40.0-70.0) % Seg Neutrophils # 6.0 (1.8-7.7) K/mm3 PT INR APTT Sodium 144 (137-145) mmol/L Potassium 4.3 (3.6-5.0) mmol/L Chloride 105.2 (98-107) mmol/L Carbon Dioxide 25 (22-30) mmol/L Anion Gap 18 mmol/L BUN 12 (7-17) mg/dL Creatinine 0.7 (0.6-1.2) mg/dL Estimated GFR > 60 ml/min BUN/Creatinine Ratio 17 % Glucose 113 H (65-100) mg/dL Calcium 9.1 (8.4-10.2) mg/dL Total Bilirubin 0.40 (0.1-1.2) mg/dL Direct Bilirubin < 0.2 (0-0.2) mg/dL Indirect Bilirubin 0.2 mg/dL AST 21 (5-40) units/L ALT 25 (7-56) units/L Alkaline Phosphatase 70 (35-129) units/L Total Protein 7.2 (6.3-8.2) g/dL Albumin 4.3 (3.9-5) g/dL Albumin/Globulin Ratio 1.5 % HCG, Qual (Negative) 07/22/20 07/22/20 07/22/20 Range/Units 20:44 22:56 22:56 WBC (4.5-11.0) K/mm3 RBC (3.65-5.03) M/mm3 Hgb (10.1-14.3) gm/dl Hct (30.3-42.9) % MCV (79-97) fl MCH (28-32) pg MCHC (30-34) % RDW (13.2-15.2) % Plt Count (140-440) K/mm3 Lymph % (Auto) (13.4-35.0) % [place] % (Auto) (0.0-7.3) % Eos % (Auto) (0.0-4.3) % Baso % (Auto) (0.0-1.8) % Lymph # (Auto) (1.2-5.4) K/mm3 [place] # (Auto) (0.0-0.8) K/mm3 Eos # (Auto) (0.0-0.4) K/mm3 Baso # (Auto) (0.0-0.1) K/mm3 Seg Neutrophils % (40.0-70.0) % Seg Neutrophils # (1.8-7.7) K/mm3 PT TNR 12.9 INR TNR 0.96 APTT TNR Sodium (137-145) mmol/L Potassium (3.6-5.0) mmol/L Chloride (98-107) mmol/L Carbon Dioxide (22-30) mmol/L Anion Gap mmol/L BUN (7-17) mg/dL Creatinine (0.6-1.2) mg/dL Estimated GFR ml/min BUN/Creatinine Ratio % Glucose (65-100) mg/dL Calcium (8.4-10.2) mg/dL Total Bilirubin (0.1-1.2) mg/dL Direct Bilirubin (0-0.2) mg/dL Indirect Bilirubin mg/dL AST (5-40) units/L ALT (7-56) units/L Alkaline Phosphatase (35-129) units/L Total Protein (6.3-8.2) g/dL Albumin (3.9-5) g/dL Albumin/Globulin Ratio % HCG, Qual Negative (Negative) - Radiology Data Radiology results: report reviewed - Medical Decision Making Initial elevated blood pressure improved spontaneously without ED treatment. Patient complains of blood from rectum for the past 2 days but has normal H&H without signs of tachycardia or hypotension. It is difficult to perform accurate guaiac examination given that patient is currently on her menstrual cycle as well. Rectal exam appears to have brown-pink stool. Abdomen is nontender. Ct abd pelvis Iv contrast without abnormalities including no diverticulosis. Pt will be dced home with hemorrhoid suppositories for possible diagnosis of internal hemorrhoids not visualized on exam and urgent outpatient GI referral recommended Critical Care Time: No Critical care attestation.: If time is entered above; I have spent that time in minutes in the direct care of this critically ill patient, excluding procedure time. ED Disposition Clinical Impression: Rectal bleeding Disposition: DC- TO HOME OR SELFCARE Is pt being admited?: No Does the pt Need Aspirin: No Condition: Stable Instructions: Rectal Bleeding (ED) Additional Instructions: Take the medication as prescribed. Follow-up with your doctor or doctor/clinic provided. Return if symptoms worsen as indicated by your discharge instructions. Prescriptions: Docusate Sodium [Colace] 100 mg PO BID PRN #20 capsule PRN Reason: Constipation Phenylephrine HCl/[place] Butter [Preparation H Suppository] 1 each RC 4XD PRN #20 supp.rect PRN Reason: Hemorrhoids Referrals: MARCELL ALFONSO MD [Staff Physician] - 3-5 Days Time of Disposition: 03:07
--- NOTE | 2020-07-23 02:42 | Cat Scan Report ---
CT ABDOMEN AND PELVIS WITH CONTRAST HISTORY: Rectal bleeding COMPARISON: 10/31/2016 CT TECHNIQUE: Routine abdominal and pelvic CT exam performed following intravenous contrast administrat ion. Patient received 100 mL IV Omnipaque 300. All CT scans at this location are performed using CT d ose reduction for ALARA by means of automated exposure control. FINDINGS: CT ABDOMEN: Lung Bases: No significant abnormality. Liver: No significant abnormality. Biliary: No significant abnormality. Spleen: No significant abnormality. Unenlarged. Pancreas: No significant abnormality. Adrenals: No significant abnormality. Kidneys: No significant abnormality. Lymphatics: No lymphadenopathy. Vasculature: No significant abnormality. Bowel/Peritoneum: No significant abnormality. No free air. No free fluid. Normal appendix. CT PELVIC: : Previous fallopian tube occlusion device seen on the right. Lymphatics: No lymphadenopathy. Osseous Structures: No aggressive appearing osseous lesions. Additional Findings: None IMPRESSION: 1. No acute findings or adverse change from the prior exam. Signer Name: Zan Lloyd MD Signed: 07/23/2020 2:38 AM Workstation Name: [employer]
[2020-07-23 03:25] VITALS: BP 133/82
== END 2020-07-23 03:24 | disposition home or self-care (01) ==
LOC: ED 18:20
DX: K62.5 Hemorrhage of anus and rectum (principal); Z88.6 Allergy status to analgesic agent; Z88.2 Allergy status to sulfonamides; Z90.79 Acquired absence of other genital organ(s)
CPT/HCPCS: 36415; 74177; 80048; 80076; 82271; 84703; 85025; 85610; 99284; Q9967; Q0162

== ENCOUNTER 2022-05-22 13:35 | Emergency (ER) | payer MEDICAID ==
[2022-05-22 14:06] VITALS: BP 151/63
--- NOTE | 2022-05-22 14:48 | XRay Report ---
CHEST 2 VIEWS INDICATION / CLINICAL INFORMATION: SOB. Dyspnea FINDINGS: SUPPORT DEVICES: None. HEART / MEDIASTINUM: No significant abnormality. LUNGS / PLEURA: No significant pulmonary or pleural abnormality. No pneumothorax. ADDITIONAL FINDINGS: No significant additional findings. IMPRESSION: 1. No acute findings. Signer Name: Shaq Belcher MD Signed: 05/22/2022 2:44 PM Workstation Name: [employer]
--- NOTE | 2022-05-22 18:45 | Emergency Department Report ---
ED Shortness of Breath HPI - General Chief Complaint: Dyspnea/Respdistress Stated Complaint: SOB/ +COVID Time Seen by Provider: 05/22/22 16:55 Source: patient, family Mode of arrival: Ambulatory Limitations: No Limitations - History of Present Illness Initial Comments: 37-year-old female presents to the emergency department with shortness of breath. Patient reports symptoms started on with cough fatigue body aches, she took a COVID test on which was negative then took another COVID test on Monday which was positive. Her daughter is also present to the emergency room with similar complaints. States she is short of breath all the time, no energy, she denies chest pain, no orthopnea, no swelling of the extremities, no fever, no hemoptysis, no headache or vision changes , no nausea vomiting abdominal pain. MD Complaint: shortness of breath, cough -: days(s) Severity: moderate Consistency: intermittent Improves With: nothing Worsens With: coughing Known History Of: other (Bronchitis) Context: recent illness Associated Symptoms: fever, cough Treatments Prior to Arrival: none - Related Data Home Oxygen Therapy: No Previous Rx's Medication Instructions Recorded Last Taken Type HYDROcodone/APAP 7.5-325 [[place] 1 each PO Q8HR PRN #20 tablet 10/31/16 Unknown Rx 7.5/325] Promethazine [Phenergan TAB] 25 mg PO Q6HR PRN #20 tab 10/31/16 Unknown Rx Cyclobenzaprine [Flexeril] 10 mg PO BID PRN #10 tablet 07/08/18 Unknown Rx Menthol/Camphor [[place] 1 applicatio TP TID PRN #1 tube 07/08/18 Unknown Rx Ointment] Naproxen 500 mg PO BID PRN #30 tablet 07/08/18 Unknown Rx traMADoL [Ultram 50 MG tab] 50 mg PO Q6HR PRN #12 tablet 12/17/18 Unknown Rx Albuterol Mdi (or & Nicu Only) 2 puff IH QID PRN #1 inhalation 08/27/19 Unknown Rx [ProAir HFA Inhaler] Azithromycin [Zithromax Z-BRAD] 1 dose PO DAILY 5 Days tab 08/27/19 Unknown Rx Inhaler, Assist Devices [Space 1 each MC PRN PRN #1 spacer 08/27/19 Unknown Rx Chamber Plus] Potassium Chloride [K-Dur] 20 meq PO BID #6 tab 08/27/19 Unknown Rx Prednisone [predniSONE 10 mg 10 mg PO .TAPER #1 tab.ds.pk 08/27/19 Unknown Rx (6-Day Pack, 21 Tabs)] Docusate Sodium [Colace] 100 mg PO BID PRN #20 capsule 07/23/20 Unknown Rx Phenylephrine HCl/[place] 1 each RC 4XD PRN #20 supp.rect 07/23/20 Unknown Rx [Preparation H Suppository] Albuterol Sulfate [Albuterol 0.63% 0.63 mg IH Q6H PRN #30 vial 05/22/22 Unknown Rx NEBS] Benzonatate [Tessalon Perles] 100 mg PO Q8HR #30 capsule 05/22/22 Unknown Rx Codeine Phosphate/Guaifenesin 5 ml PO Q6H PRN #60 05/22/22 Unknown Rx [Codeine-Guaifen 10-100 mg/5 ml] Ibuprofen [Motrin 800 MG tab] 800 mg PO Q8HR PRN #30 tablet 05/22/22 Unknown Rx Nirmatrelvir/Ritonavir [Paxlov[place] 1 each PO BID 5 Days 05/22/22 Unknown Rx 150-100 mg Pack (Eua)] Allergies Allergy/AdvReac Type Severity Reaction Status Date / Time aspirin Allergy Unknown Verified 10/31/16 00:12 Sulfa (Sulfonamide Allergy Unknown Verified 10/31/16 00:12 Antibiotics) ED Review of Systems ROS: Stated complaint: SOB/ +COVID Other details as noted in HPI Constitutional: chills, malaise. denies: fever ENT: denies: ear pain, throat pain, dental pain, congestion Respiratory: cough, shortness of breath. denies: wheezing Cardiovascular: denies: chest pain, palpitations, dyspnea on exertion, edema, syncope Gastrointestinal: denies: abdominal pain, nausea, vomiting, diarrhea Musculoskeletal: denies: back pain Skin: denies: rash, lesions Neurological: denies: headache, weakness ED Past Medical Hx - Past Medical History Previous Medical History?: No Additional medical history: cyst on ovaries - Surgical History Past Surgical History?: Yes Additional Surgical History: Bilateral salpingectomy after tube injury status post Ensure placement 2015 - Social History Smoking Status: Never Smoker Substance Use Type: None - Medications Home Medications: Home Medications Medication Instructions Recorded Confirmed Last Taken Type HYDROcodone/APAP 7.5-325 [[place] 1 each PO Q8HR PRN #20 tablet 10/31/16 Unknown Rx 7.5/325] Promethazine [Phenergan TAB] 25 mg PO Q6HR PRN #20 tab 10/31/16 Unknown Rx Cyclobenzaprine [Flexeril] 10 mg PO BID PRN #10 tablet 07/08/18 Unknown Rx Menthol/Camphor [[place] 1 applicatio TP TID PRN #1 tube 07/08/18 Unknown Rx Ointment] Naproxen 500 mg PO BID PRN #30 tablet 07/08/18 Unknown Rx traMADoL [Ultram 50 MG tab] 50 mg PO Q6HR PRN #12 tablet 12/17/18 Unknown Rx Albuterol Mdi (or & [place] Only) 2 puff IH QID PRN #1 inhalation 08/27/19 Unknown Rx [ProAir HFA Inhaler] Azithromycin [Zithromax Z-BRAD] 1 dose PO DAILY 5 Days tab 08/27/19 Unknown Rx Inhaler, Assist Devices [Space 1 each MC PRN PRN #1 spacer 08/27/19 Unknown Rx Chamber Plus] Potassium Chloride [K-Dur] 20 meq PO BID #6 tab 08/27/19 Unknown Rx Prednisone [predniSONE 10 mg 10 mg PO .TAPER #1 tab.ds.pk 08/27/19 Unknown Rx (6-Day Pack, 21 Tabs)] Docusate Sodium [Colace] 100 mg PO BID PRN #20 capsule 07/23/20 Unknown Rx Phenylephrine HCl/[place] 1 each RC 4XD PRN #20 supp.rect 07/23/20 Unknown Rx [Preparation H Suppository] Albuterol Sulfate [Albuterol 0.63% 0.63 mg IH Q6H PRN #30 vial 05/22/22 Unknown Rx NEBS] Benzonatate [Tessalon Perles] 100 mg PO Q8HR #30 capsule 05/22/22 Unknown Rx Codeine Phosphate/Guaifenesin 5 ml PO Q6H PRN #60 05/22/22 Unknown Rx [Codeine-Guaifen 10-100 mg/5 ml] Ibuprofen [Motrin 800 MG tab] 800 mg PO Q8HR PRN #30 tablet 05/22/22 Unknown Rx Nirmatrelvir/Ritonavir [P[place]lov[place] 1 each PO BID 5 Days 05/22/22 Unknown Rx 150-100 mg Pack (Eua)] ED Physical Exam - General Limitations: No Limitations General appearance: alert, in no apparent distress - Head Head exam: Present: atraumatic, normocephalic - Eye Eye exam: Present: normal appearance Pupils: Present: normal accommodation - ENT ENT exam: Present: normal exam, normal orophraynx - Neck Neck exam: Present: normal inspection. Absent: tenderness - Respiratory Respiratory exam: Present: normal lung sounds bilaterally. Absent: respiratory distress, wheezes, chest wall tenderness - Cardiovascular Cardiovascular Exam: Present: regular rate, normal rhythm - GI/Abdominal GI/Abdominal exam: Present: soft, normal bowel sounds. Absent: distended, tenderness - Extremities Exam Extremities exam: Present: normal inspection, full ROM, normal capillary refill. Absent: pedal edema, calf tenderness ED Course Vital Signs 05/22/22 14:02 Temperature 98.8 F Pulse Rate 82 Respiratory 16 Rate Blood Pressure 151/63 [Left] O2 Sat by Pulse 97 Oximetry ED Medical Decision Making - Radiology Data Radiology results: report reviewed interpreted by me: No acute findings 37-year-old female presents to the emergency department with shortness of breath. Patient reports symptoms started on with cough fatigue body aches, she took a COVID test on which was negative then took another COVID test on Monday which was positive. Her daughter is also present to the emergency room with similar complaints. States she is short of breath all the time, no energy, she denies chest pain, no orthopnea, no swelling of the extremities, no fever, no hemoptysis, no headache or vision changes , no nausea vomiting abdominal pain. She does have a positive COVID result which I saw her that confirms COVID-19 virus. Infection On exam patient has no discharge, has sats above 95% on room air, no wheezing, no use of water sander muscles, she has remained stable ambulating steadily, with stable vital signs. Does not meet criteria for admission for COVID, however based on her history and her BMI, patient meets criteria for Paxil with therapy. I provided her with information sheets regarding Paxilovid, and also encouraged her to follow-up. I also provided her with some albuterol to use as needed for her shortness of breath, coughing spells, continue to monitor her oxygen levels. No indication for antibiotics or steroids at this time based on recent studies. Patient remained stable nontoxic-appearing, afebrile, ambulating steadily without assistance. Gone over ED findings with patient as well as plan for follow-up. Also discussed return precautions with patient, all questions and concerns addressed. Patient is stable to be discharged follow-up outpatient. Audio voice dictation device used, hence the chart might contain some dictation errors, mispronunciations, wrong spelling and wrong verbiage. Critical care attestation.: If time is entered above; I have spent that time in minutes in the direct care of this critically ill patient, excluding procedure time. ED Disposition Clinical Impression: Bronchitis due to COVID-19 virus, Shortness of breath Disposition: 01 HOME / SELF CARE / HOMELESS Is pt being admited?: No Does the pt Need Aspirin: No Condition: Stable Instructions: Chronic Bronchitis (ED), Shortness of Breath, Adult, [id number], COVID-19 Frequently Asked Questions Prescriptions: Albuterol Sulfate [Albuterol 0.63% NEBS] 0.63 mg IH Q6H PRN #30 vial PRN Reason: Wheezing Codeine Phosphate/Guaifenesin [Codeine-Guaifen 10-100 mg/5 ml] 5 ml PO Q6H PRN #60 PRN Reason: Cough Ibuprofen [Motrin 800 MG tab] 800 mg PO Q8HR PRN #30 tablet PRN Reason: Pain Nirmatrelvir/Ritonavir [Paxlovid 150-100 mg Pack (Eua)] 1 each PO BID 5 Days Benzonatate [Tessalon Perles] 100 mg PO Q8HR #30 capsule Referrals: PRIMARY CARE,MD [Primary Care Provider] - 3-5 Days Forms: Work/School Release Form(ED)
== END 2022-05-22 19:55 | disposition home or self-care (01) ==
LOC: ED 13:35
DX: J40 Bronchitis, not specified as acute or chronic (principal); R06.02 Shortness of breath; Z20.822 Contact with and (suspected) exposure to COVID-19; Z88.1 Allergy status to other antibiotic agents; Z91.09 Other allergy status, other than to drugs and biological substances; Z79.899 Other long term (current) drug therapy
CPT/HCPCS: 71046; 99283